=== PATIENT | female | born 1970 | race Caucasian/White ===

== ENCOUNTER → 2017-03-23 | Outpatient (CLI) | payer BC ==
[2015-10-16 14:20] VITALS: BP 121/76
[~2017-03-23] MED LIST: FERR325T58 PO; OLME40TA12 PO
--- NOTE | 2017-03-23 11:23 | KCIC ---
PQRS STATEMENT: One or more of the following in the visualized dose reduction techniques were utilized for this study: 1. Automatic exposure control, 2. Adjustment of the mA and/or kV according to patient size, 3. Use of iterative reconstruction technique CT ABDOMEN/PELVIS Indication:Right flank pain Technique: Multiple contiguous axial images were obtained through the abdomen and pelvis. Coronal and sagittal reformations were created. Findings: There is a 4 mm calculus in the proximal right ureter causing right sided hydronephrosis. There is a nonobstructive 3 mm calculus in the interpolar region of the left kidney. There is no left-sided hydronephrosis. Urinary bladder is within normal limits. The heart size is normal. The lung bases are clear.Evaluation of the abdominal viscera is limited in the absence of IV contrast. The liver and spleen are normal in size. The gallbladder is nondistended. The pancreas, and adrenal glands are within normal limits. There is no abdominopelvic ascites. Abdominal aorta is normal in caliber. .The bowel loops are normal in caliber. The appendix is normal.No destructive osseus lesions are identified. Impression: 4 mm obstructive calculus within the proximal right ureter causing right-sided hydronephrosis. Electronically signed by: Kenji Rosas MD (03/23/2017 11:19 AM)
== END | disposition home or self-care (01) ==
LOC: KCIC CT 10:34
PROVIDERS: ATTEND Nurse Practitioner
DX: N20.2 Calculus of kidney with calculus of ureter (principal)
CPT/HCPCS: 74176

== ENCOUNTER → 2017-03-24 | Outpatient (CLI) | payer BC ==
[2015-10-16 14:20] VITALS: BP 121/76
--- NOTE | 2017-03-24 13:27 | RAD ---
SONOGRAPHY OF THE LEFT BREAST Indications: Follow-up of hypoechoic nodule of the 6 clock position of the left breast seen on sonogram dated August 25, 2016. Probable complicated cyst. Findings: Sonography of the 6:00 position of the left breast demonstrates the same small hypoechoic nodule which now measures 4.8 mm in greatest dimension. Sound through transmission is seen. This nodule measured 7.3 mm in greatest dimension on the previous study. Therefore, it has decreased in size consistent with a complicated cyst. Previously seen benign-appearing left axillary lymph node is not evident today. IMPRESSION: Decrease in size of small complicated cyst of the 6 clock position of the left breast which now only measures 4.8 mm in caliber. Therefore, recommend routine screening mammography. The patient is due for a mammogram on August 26, 2017. BI-RADS Category 2 benign finding. The patient information was entered into the data reminder system with a target due date for the next mammogram of August 26, 2017.. MTDD
== END | disposition home or self-care (01) ==
LOC: MAMMO 12:47
PROVIDERS: ATTEND Obstetrics & Gynecology
DX: N63 Unspecified lump in breast (principal)
CPT/HCPCS: 76641

== ENCOUNTER → 2017-05-12 | Outpatient (CLI) | payer BC ==
[2015-10-16 14:20] VITALS: BP 121/76
--- NOTE | 2017-05-12 13:11 | KCIC ---
Exam: Renal ultrasound Indication: Nephrolithiasis Technique: Multiple realtime grayscale sonographic images were obtained over the abdomen. Static images were submitted for interpretation. Comparisons: None Findings: The Right kidney is normal in size measuring 11.8 x 4.8 x 4.9cm. There is no evidence for mass, nephrolithiasis, or hydronephrosis. The Left kidney is normal in size measuring 12.4 x 6.1 x 5.9cm. There is no evidence for mass, nephrolithiasis, or hydronephrosis. The abdominal aorta is normal in caliber. The IVC is patent. No ascites is identified The urinary bladder is normal Impression: Normal renal ultrasound Electronically signed by: Kenji Rosas MD (05/12/2017 1:08 PM) [place] [id number]
== END | disposition home or self-care (01) ==
LOC: KCIC US 12:15
PROVIDERS: ATTEND Urology
DX: N20.0 Calculus of kidney (principal)
CPT/HCPCS: 76770

== ENCOUNTER → 2017-05-25 | Outpatient (CLI) | payer BC ==
[2015-10-16 14:20] VITALS: BP 121/76
--- NOTE | 2017-05-25 13:26 | KCIC ---
Examination: CT of the abdomen pelvis without contrast HISTORY: History of renal calculus. COMPARISON: 03/23/2017 TECHNIQUE: Axial CT images of the abdomen pelvis were performed without contrast. Coronal and sagittal reformats performed. Exposure: One or more of the following individualized dose reduction techniques were utilized for this examination: 1. Automated exposure control 2. Adjustment of the mA and/or kV according to patient size 3. Use of iterative reconstruction technique FINDINGS: The visualized bibasilar lungs grossly appears unremarkable. No evidence of free air identified in the abdomen. The evaluation of solid organs is limited due to lack of IV contrast. Evaluation of bowel is limited due to lack of oral contrast. The visualized noncontrasted liver, spleen, adrenals grossly appears unremarkable. The gallbladder is mildly distended. The stomach is mildly distended. The visualized pancreas grossly appears unremarkable. The small bowel is nondilated. The appendix is normal. Feces and gas noted in the colon. Multiple colonic diverticula identified. Urinary bladder is mildly distended. Visualized uterus, adnexa grossly appears unremarkable. Punctate intrarenal collecting system calculi identified in the left kidney with largest measuring 4 mm. Another 1 mm intrarenal collecting system calculus identified in the left kidney. No evidence of hydronephrosis. Urinary bladder is mildly distended. Caliber of the aorta grossly appears unremarkable. No evidence of lytic bony destructive lesion. IMPRESSION: 1. Punctate 4 mm and 1 mm intrarenal collecting system calculi identified in the left kidney without hydronephrosis. . 2. Multiple colonic diverticula. Electronically signed by: Rosalio Harris MD (05/25/2017 1:22 PM) [facility]
== END | disposition home or self-care (01) ==
LOC: KCIC CT 12:18
PROVIDERS: ATTEND Urology
DX: N20.0 Calculus of kidney (principal); K57.30 Diverticulosis of large intestine without perforation or abscess without bleeding; Z87.442 Personal history of urinary calculi
CPT/HCPCS: 74176

== ENCOUNTER → 2017-08-27 | Outpatient (CLI) | payer BC ==
[2015-10-16 14:20] VITALS: BP 121/76
--- NOTE | 2017-08-27 15:39 | RAD ---
DATE: 08/27/2017 EXAM: DIGITAL SCREEN BILAT W/CAD HISTORY: Screening mammogram COMPARISON: Previous mammogram from 2016 and 2014 This study was interpreted with the benefit of Computerized Aided Detection (CAD). FINDINGS: Breast Density: HETERO The breast parenchyma Is heterogeneously dense, which could reduce sensitivity of mammography. Breast parenchyma level C. The skin and nipples are within normal limits. Bilateral scattered calcifications noted. No suspicious calcifications, spiculated masses or areas of architectural distortion. IMPRESSION: No mammographic evidence of malignancy. Stable mammogram. BI-RADS CATEGORY: 2 BENIGN FINDING(S) RECOMMENDED FOLLOW-UP: 12M 12 MONTH FOLLOW-UP PQRS compliance statement: Patient information was entered into a reminder system with a target due date 08/27/2018 for the next mammogram. Mammography is a sensitive method for finding small breast cancers, but it does not detect them all and is not a substitute for careful clinical examination. A negative mammogram does not negate a clinically suspicious finding and should not result in delay in biopsying a clinically suspicious abnormality. "Our facility is accredited by the [employer] Mammography Program."
== END | disposition home or self-care (01) ==
LOC: MAMMO 14:58
PROVIDERS: ATTEND Obstetrics & Gynecology
DX: Z12.31 Encounter for screening mammogram for malignant neoplasm of breast (principal)
CPT/HCPCS: G0202; 77067

== ENCOUNTER → 2017-10-28 | Outpatient (CLI) | payer BC | END | disposition home or self-care (01) | LOC: KCIC US 14:55 | DX: N20.0 Calculus of kidney (principal); Z87.442 Personal history of urinary calculi | CPT/HCPCS: 76770 ==

== ENCOUNTER → 2018-03-22 | Outpatient (CLI) | payer BC | END | disposition home or self-care (01) | LOC: KCIC CT 12:44 | DX: N20.0 Calculus of kidney (principal); K44.9 Diaphragmatic hernia without obstruction or gangrene; K57.30 Diverticulosis of large intestine without perforation or abscess without bleeding; I87.8 Other specified disorders of veins | CPT/HCPCS: 74176 ==

== ENCOUNTER → 2018-06-08 | Outpatient (CLI) | payer BC ==
[2015-10-16 14:20] VITALS: BP 121/76
--- NOTE | 2018-06-08 13:56 | RAD ---
DATE: 06/08/2018 EXAM: DIGITAL DIAGNOSTIC LT, BREAST LEFT HISTORY: Left breast pain COMPARISON: 08/27/2017 This study was interpreted with the benefit of Computerized Aided Detection (CAD). Breast Density: HETERO The breast parenchyma is heterogenously dense, which could reduce sensitivity of mammography. Breast parenchyma level C. FINDINGS: No new or enlarging breast densities are seen. There are stable microcalcifications in the left breast. No suspicious microcalcifications have developed. Left breast ultrasound, 06/08/2018: The entire left breast was carefully scanned. Heterogeneous fibroglandular shadows are evident. The small hypoechoic nodule previously seen at the 6:00 location, 2 cm from the nipple is again identified. It is now more elongated in configuration measuring approximately 4.5 x 2.4 mm. There are low level internal echoes. The sequence of scans dating back to 08/25/2016 suggests that this is a collapsing, complicated cyst. No new abnormality is seen in this region or other areas of the left breast. IMPRESSION: 1. Stable left mammograms without evidence of malignancy. 2. Regressing small left breast cyst. BI-RADS CATEGORY: 2 BENIGN FINDING(S) RECOMMENDED FOLLOW-UP: 12M 12 MONTH FOLLOW-UP PQRS compliance statement: Patient information was entered into a reminder system with a target due date for the next mammogram. Mammography is a sensitive method for finding small breast cancers, but it does not detect them all and is not a substitute for careful clinical examination. A negative mammogram does not negate a clinically suspicious finding and should not result in delay in biopsying a clinically suspicious abnormality. "Our facility is accredited by the [employer] Mammography Program."
== END | disposition home or self-care (01) ==
LOC: MAMMO 12:56
PROVIDERS: ATTEND Internal Medicine
DX: N63.23 Unspecified lump in the left breast, lower outer quadrant (principal); Z87.442 Personal history of urinary calculi
CPT/HCPCS: 76641; 77065

== ENCOUNTER 2018-07-14 15:30 | Emergency (ER) | payer BC ==
[~2018-07-14] VITALS: Ht 152.4 cm; Wt 88.5 kg
--- NOTE | 2018-07-14 15:53 | EKG ---
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
[2018-07-14 15:58] LABS: BILIRUBIN,URINE NEGATIVE (NEG); CLARITY,URINE CLEAR; COLOR,URINE YELLOW; NITRITE,URINE NEGATIVE (NEG); PH,URINE 7.5; PROTEIN,URINE NEGATIVE (NEG-TRACE); UROBILINOGEN,URINE 0.2 mg/dL (0.2 mg/dL)
[2018-07-14] MEDS ORDERED: IV NORMAL SALINE 1000ML BAG 1,000 ML IV ONE (16:00)
[2018-07-14 16:03] LABS: BARBITURATES NEG (NEG); BENZODIAZEPINES NEG (NEG); CANNABINOIDS NEG (NEG); COCAINE NEG (NEG); METHADONE NEG (NEG); OPIATES NEG (NEG); PHENCYCLIDINE NEG (NEG)
[2018-07-14 16:05] LABS: AMPHETAMINE/METHAMPHETAMINE NEG (NEG)
--- NOTE | 2018-07-14 16:11 | PHYS DOC ---
Adult General Chief Complaint Chief Complaint: NEURO SYMPTOMS/DEFICITS HPI HPI Patient is a 48 year old F who presents with lightheaded/dizziness since about 9:00 this morning. Patient reports initially both of her hands were tingly. She reports over the course of the day they have become numb. She states her face feels numb as well. She denies any chest pain, shortness of breath, or palpitations. She is also having numbness in a burning sensation to the left inguinal area. She reports she is anxious. Review of Systems Review of Systems Constitutional: Denies fever or chills [] Eyes: Denies change in visual acuity HENT: Denies nasal congestion or sore throat [] Respiratory: Denies cough or shortness of breath [] Cardiovascular: No chest pain or palpitations GI: Denies abdominal pain, nausea, vomiting Musculoskeletal: Denies back pain or joint pain [] Integument: Denies rash or skin lesions [] Neurologic: Denies headache, focal weakness. Reports facial and upper extremity numbness All other systems were reviewed and found to be within normal limits, except as documented in this note. Current Medications Current Medications Current Medications Medications (Trade) Dose Ordered Sig/Amarilis Start Time Stop Time Status Last Admin Dose Admin Ketorolac Tromethamine (Toradol 30mg Vial) 15 mg 1X ONCE 07/14/18 18:30 07/14/18 18:31 DC 07/14/18 18:30 15 MG Potassium Chloride (Klor-Con) 40 meq 1X ONCE 07/14/18 18:30 07/14/18 18:31 DC 07/14/18 18:28 40 MEQ Sodium Chloride 1,000 ml @ 1,000 mls/hr 1X ONCE 07/14/18 16:00 07/14/18 16:59 DC 07/14/18 16:50 1,000 MLS/HR Allergies Allergies Allergies Coded Allergies Type Severity Reaction Last Updated Verified sulfur dioxide Allergy Intermediate Swelling 10/16/15 Yes Physical Exam Physical Exam Constitutional: Well developed, well nourished, no acute distress, non-toxic appearance. [] HENT: Normocephalic, atraumatic Eyes: PERRLA, EOMI, conjunctiva normal, no discharge. [] Neck: Normal range of motion, no tenderness, supple, no stridor. [] Cardiovascular: Tachycardia, regular rhythm, no murmur [] Lungs & Thorax: Bilateral breath sounds clear to auscultation [] Abdomen: Bowel sounds normal, soft, no tenderness Skin: Warm, dry, no erythema, no rash. [] Extremities: ROM intact, no edema. [] Neurologic: Alert and oriented X 3, normal motor function, normal sensory function, no focal deficits noted. [] Psychologic: Affect normal, judgement normal, mood normal. [] Current Patient Data Vital Signs Vital Signs Date Time Temp Pulse Resp B/P (MAP) Pulse Ox O2 Delivery O2 Flow Rate FiO2 07/14/18 18:38 102 21 100 07/14/18 15:40 98.3 202/113 (142) Room Air 98.3 Lab Values Laboratory Tests Test 07/14/18 15:45 07/14/18 15:51 07/14/18 16:10 Urine Collection Type Unknown Urine Color Yellow Urine Clarity Clear Urine pH 7.5 Urine Specific [place] 1.010 Urine Protein Negative mg/dL (NEG-TRACE) Urine Glucose (UA) Negative mg/dL (NEG) Urine Ketones (Stick) Negative mg/dL (NEG) Urine Blood Trace (NEG) Urine Nitrite Negative (NEG) Urine Bilirubin Negative (NEG) Urine Urobilinogen Dipstick 0.2 mg/dL (0.2 mg/dL) Urine Leukocyte Esterase Negative (NEG) Urine RBC 1-2 /HPF (0-2) Urine WBC 0 /HPF (0-4) Urine Squamous Epithelial Cells Mod /LPF Urine Bacteria 0 /HPF (0-FEW) Urine Opiates Screen Neg (NEG) Urine Methadone Screen Neg (NEG) Urine Barbiturates Neg (NEG) Urine Phencyclidine Screen Neg (NEG) Urine Amphetamine/Methamphetamine Neg (NEG) Urine Benzodiazepines Screen Neg (NEG) Urine Cocaine Screen Neg (NEG) Urine Cannabinoids Screen Neg (NEG) Urine Ethyl Alcohol Neg (NEG) POC Urine HCG, Qualitative Hcg negative (Negative) White Blood Count 11.0 x10^3/uL (4.0-11.0) Red Blood Count 5.18 x10^6/uL (3.50-5.40) Hemoglobin 16.4 g/dL (12.0-15.5) H Hematocrit 45.4 % (36.0-47.0) Mean Corpuscular Volume 88 fL (79-100) Mean Corpuscular Hemoglobin 32 pg (25-35) Mean Corpuscular Hemoglobin Concent 36 g/dL (31-37) Red Cell Distribution Width 13.8 % (11.5-14.5) Platelet Count 282 x10^3/uL (140-400) Neutrophils (%) (Auto) 62 % (31-73) Lymphocytes (%) (Auto) 29 % (24-48) Monocytes (%) (Auto) 7 % (0-9) Eosinophils (%) (Auto) 2 % (0-3) Basophils (%) (Auto) 1 % (0-3) Neutrophils # (Auto) 6.8 x10^3uL (1.8-7.7) Lymphocytes # (Auto) 3.1 x10^3/uL (1.0-4.8) Monocytes # (Auto) 0.7 x10^3/uL (0.0-1.1) Eosinophils # (Auto) 0.2 x10^3/uL (0.0-0.7) Basophils # (Auto) 0.1 x10^3/uL (0.0-0.2) D-Dimer (Krys) < 0.27 ug/mlFEU Sodium Level 142 mmol/L (136-145) Potassium Level 3.1 mmol/L (3.5-5.1) L Chloride Level 102 mmol/L (98-107) Carbon Dioxide Level 26 mmol/L (21-32) Anion Gap 14 (6-14) Blood Urea Nitrogen 9 mg/dL (7-20) Creatinine 0.8 mg/dL (0.6-1.0) Estimated GFR (Cockcroft-Gault) 77.2 BUN/Creatinine Ratio 11 (6-20) Glucose Level 122 mg/dL (70-99) H Calcium Level 9.6 mg/dL (8.5-10.1) Total Bilirubin 0.3 mg/dL (0.2-1.0) Aspartate Amino Transferase (AST) 16 U/L (15-37) Alanine Aminotransferase (ALT) 28 U/L (14-59) Alkaline Phosphatase 91 U/L (46-116) Troponin I Quantitative < 0.017 ng/mL (0.000-0.055) Total Protein 8.0 g/dL (6.4-8.2) Albumin 4.1 g/dL (3.4-5.0) Albumin/Globulin Ratio 1.1 (1.0-1.7) Thyroid Stimulating Hormone (TSH) 0.838 uIU/mL (0.358-3.74) Laboratory Tests 07/14/18 16:10 Laboratory Tests 07/14/18 16:10 EKG EKG Sinus tach, rate 120, no STEMI[] Radiology/Procedures Radiology/Procedures PATIENT: ISIDRA BARBA: [id number]#: [id number] : 1970 LOCATION: ER AGE: 48 SEX: F EXAM STATUS: REG ER ORD. PHYSICIAN: TADEO WELSH APRN REASON: left thigh pain PROCEDURE: VENOUS LOWER EXTREMITY LEFT Left Lower Extremity Venous Doppler Ultrasound Indication: Left thigh pain and numbness. Comparison: None. Procedure: Color Doppler, spectral Doppler, and grayscale images with and without compression are obtained in the area of the common femoral vein, superficial femoral vein - femoral vein junction, main femoral vein (superficial femoral vein) and popliteal vein. Veins of the proximal calf are also imaged. Findings: There is normal duplex flow, color flow and compressibility of all visualized vein segments. There is no evidence of deep venous thrombosis. Impression: No evidence of left lower extremity deep venous thrombosis. Electronically signed by: Brett Braun MD (07/14/2018 7:44 PM) [facility] DICTATED and SIGNED BY: BRETT BRAUN MD DATE: 07/14/18 194 PATIENT: ISIDRA BARBA: [id number] : 1970 LOCATION: ER AGE: 48 SEX: F EXAM STATUS: REG ER ORD. PHYSICIAN: TADEO WELSH APRN REASON: tachycardia, lightheadedness PROCEDURE: CHEST AP ONLY Exam: AP portable chest History: Left weakness and lightheadedness. Tachycardia. Comparison: None. Findings: The heart and mediastinal structures are within normal limits for size. Lungs are without infiltrate. No pleural effusion or pneumothorax is identified. Impression: 1. No acute cardiopulmonary process. Electronically signed by: Brett Braun MD (07/14/2018 7:10 PM) [facility] DICTATED and SIGNED BY: BRETT BRAUN MD DATE: 07/14/181908 [] Course & Med Decision Making Course & Med Decision Making Pertinent Labs and Imaging studies reviewed. (See chart for details) Discussed labs and x-ray results with patient. She continues to have numbness in her head and now has a headache. She continues to have burning and numbness to her right inguinal area. I explained to patient multiple times that this is likely a pinched nerve coming from her lower back. She is concerned about a blood clot. Explained that her d-dimer was negative and although it could have been, it is very unlikely that she would have a blood clot with a negative d- dimer. Patient continues to ask for an ultrasound to rule out DVT. I will proceed with this for her reassurance. Plan supportive care, follow up with PCP, return precautions reviewed[] Dragon Disclaimer Dragon Disclaimer This electronic medical record was generated, in whole or in part, using a voice recognition dictation system. Departure Departure Impression: Primary Impression: Numbness and tingling in both hands Additional Impressions: Numbness and tingling sensation of skin Burning pain Disposition: 01 HOME, SELF-CARE Condition: GOOD Referrals: DELPHINE PATEL MD (PCP) Patient Instructions: Lumbosacral Radiculopathy, Paresthesia Additional Instructions: Follow up with your PCP in 1-2 days Problem Qualifiers TADEO WELSH APRN Jul 14, 2018 16:11
[2018-07-14 16:33] LABS: BASO # 0.1 x10^3/uL (0.0-0.2); BASO % 1 % (0-3); EOS # 0.2 x10^3/uL (0.0-0.7); EOS % 2 % (0-3); HEMATOCRIT 45.4 % (36.0-47.0); HEMOGLOBIN 16.4 g/dL (12.0-15.5); LYMPH # 3.1 x10^3/uL (1.0-4.8); LYMPH % 29 % (24-48); MEAN CORPUSCULAR HEMOGLOBIN 32 pg (25-35); MEAN CORPUSCULAR HGB CONC 36 g/dL (31-37); MEAN CORPUSCULAR VOLUME 88 fL (79-100); MONO # 0.7 x10^3/uL (0.0-1.1); MONO % 7 % (0-9); NEUT # 6.8 x10^3uL (1.8-7.7); NEUT % 62 % (31-73); PLATELET COUNT 282 x10^3/uL (140-400); RED BLOOD COUNT 5.18 x10^6/uL (3.50-5.40); RED CELL DISTRIBUTION WIDTH 13.8 % (11.5-14.5)
[2018-07-14 16:40] LABS: CALCIUM 9.6 mg/dL (8.5-10.1); CREATININE 0.8 mg/dL (0.6-1.0); GFR 77.2; POTASSIUM 3.1 mmol/L (3.5-5.1)
[2018-07-14 16:45] LABS: ALBUMIN 4.1 g/dL (3.4-5.0); ALBUMIN/GLOBULIN RATIO 1.1 (1.0-1.7); TOTAL BILIRUBIN 0.3 mg/dL (0.2-1.0)
[2018-07-14 16:49] LABS: BACTERIA,URINE 0 /HPF (0-FEW); SQUAMOUS EPITHELIAL CELL,UR MOD /LPF; WBC,URINE 0 /HPF (0-4)
[2018-07-14] MEDS ORDERED: KETOROLAC 30 MG/ML VIAL. IV ONE (18:30)
[2018-07-14] MEDS ORDERED: POTASSIUM CHLORIDE 20 MEQ TABLET.ER. PO ONE (18:30)
--- NOTE | 2018-07-14 19:13 | RAD ---
Exam: AP portable chest History: Left weakness and lightheadedness. Tachycardia. Comparison: None. Findings: The heart and mediastinal structures are within normal limits for size. Lungs are without infiltrate. No pleural effusion or pneumothorax is identified. Impression: 1. No acute cardiopulmonary process. Electronically signed by: Brett Argueta MD (07/14/2018 7:10 PM) [facility]
--- NOTE | 2018-07-14 19:47 | RAD ---
Left Lower Extremity Venous Doppler Ultrasound Indication: Left thigh pain and numbness. Comparison: None. Procedure: Color Doppler, spectral Doppler, and grayscale images with and without compression are obtained in the area of the common femoral vein, superficial femoral vein - femoral vein junction, main femoral vein (superficial femoral vein) and popliteal vein. Veins of the proximal calf are also imaged. Findings: There is normal duplex flow, color flow and compressibility of all visualized vein segments. There is no evidence of deep venous thrombosis. Impression: No evidence of left lower extremity deep venous thrombosis. Electronically signed by: Brett Argueta MD (07/14/2018 7:44 PM) [facility]
[2018-07-14 20:23] VITALS: BP 146/89
== END 2018-07-14 20:32 | disposition home or self-care (01) ==
LOC: ER 15:30
DX: R20.2 Paresthesia of skin (principal); R20.0 Anesthesia of skin; R10.32 Left lower quadrant pain; R42 Dizziness and giddiness; R51 Headache; R00.0 Tachycardia, unspecified; M79.652 Pain in left thigh; Z88.2 Allergy status to sulfonamides
CPT/HCPCS: 36415; 71045; 80053; 80307; 81001; 81025; 84443; 84484; 85025; 85379; 93005; 93971; 96361; 96374; 99285; J1885; J7030; G0479

== ENCOUNTER → 2018-08-26 | Outpatient (CLI) | payer BC ==
[~2018-08-26] MED LIST changes: +AMLO5TAB7 PO; +AMOX1TAB11 PO; +HYDR12.58 PO; +METF500T16 PO; +POTA20TA82 PO
[2018-08-26 16:01] LABS: BASO # 0.1 x10^3/uL (0.0-0.2); BASO % 1 % (0-3); EOS # 0.2 x10^3/uL (0.0-0.7); EOS % 2 % (0-3); HEMATOCRIT 44.8 % (36.0-47.0); HEMOGLOBIN 15.3 g/dL (12.0-15.5); LYMPH # 3.2 x10^3/uL (1.0-4.8); LYMPH % 28 % (24-48); MEAN CORPUSCULAR HEMOGLOBIN 30 pg (25-35); MEAN CORPUSCULAR HGB CONC 34 g/dL (31-37); MEAN CORPUSCULAR VOLUME 89 fL (79-100); MONO # 0.8 x10^3/uL (0.0-1.1); MONO % 7 % (0-9); NEUT # 7.1 x10^3uL (1.8-7.7); NEUT % 62 % (31-73); PLATELET COUNT 267 x10^3/uL (140-400); RED BLOOD COUNT 5.06 x10^6/uL (3.50-5.40); RED CELL DISTRIBUTION WIDTH 13.8 % (11.5-14.5); WHITE BLOOD COUNT 11.4 x10^3/uL (4.0-11.0)
--- NOTE | 2018-08-26 16:07 | EKG ---
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
[2018-08-26 16:10] LABS: BILIRUBIN,URINE NEGATIVE (NEG); CLARITY,URINE CLEAR; COLOR,URINE YELLOW; NITRITE,URINE NEGATIVE (NEG); PH,URINE 7.5; PROTEIN,URINE NEGATIVE (NEG-TRACE); UROBILINOGEN,URINE 0.2 mg/dL (0.2 mg/dL)
[2018-08-26 16:16] LABS: ALBUMIN 3.7 g/dL (3.4-5.0); ALBUMIN/GLOBULIN RATIO 0.9 (1.0-1.7); CALCIUM 9.4 mg/dL (8.5-10.1); CREATININE 0.7 mg/dL (0.6-1.0); GFR 90.1; TOTAL BILIRUBIN 0.3 mg/dL (0.2-1.0); TOTAL PROTEIN 7.9 g/dL (6.4-8.2)
[2018-08-26 16:19] LABS: RBC,URINE TNTC /HPF (0-2)
[2018-08-26 16:20] LABS: BACTERIA,URINE 0 /HPF (0-FEW); SQUAMOUS EPITHELIAL CELL,UR MOD /LPF
[2018-08-27 02:13] LABS: HEMOGLOBIN A1C 6.2 % (4.8-5.6)
== END | disposition home or self-care (01) ==
LOC: SURGPAT 14:39
PROVIDERS: ATTEND Obstetrics & Gynecology
DX: Z01.818 Encounter for other preprocedural examination (principal); I10 Essential (primary) hypertension; R73.03 Prediabetes
CPT/HCPCS: 36415; 80053; 81001; 83036; 85025; 87086; 93005

== ENCOUNTER 2018-09-01 08:51 | Observation (INO) | payer BC ==
[~2018-09-01] VITALS: Ht 152.4 cm; Wt 85.3 kg
[~2018-09-01 08:51] MED LIST changes: -AMOX1TAB11 PO; +HYDROmorphone 2 MG/ML VIAL IV PRN; +IV RINGERS,LACTATED 1000ML 1,000 ML IV SCH; +LIDOCAINE 1% PF 2 ML VIAL. ID PRN; +MORPHINE SULFATE 2 MG/ML VIAL. IV PRN; +ONDANSETRON PF 4 MG/2 ML VIAL. IV PRN; +PROCHLORPERAZINE 10 MG/2 ML VIAL. IV PRN; +fentaNYL PF VIAL 100 MCG/2 ML VIAL IV PRN
[2018-09-01] MEDS ORDERED: AMOX1TAB11 PO (09:24)
[2018-09-01] MEDS ORDERED: ROCURONIUM 50 MG/5 ML VIAL. ONE ×2 (09:33→11:32)
[2018-09-01] MEDS ORDERED: fentaNYL PF VIAL 250 MCG/5 ML VIAL ONE (09:33)
[2018-09-01] MEDS ORDERED: MIDAZOLAM HCL/PF 2 MG/2 ML VIAL. ONE (09:33)
[2018-09-01] MEDS ORDERED: ISOSULFAN BLUE 50 MG/5 ML VIAL. SQ ONE (09:35)
[2018-09-01] MEDS ORDERED: BUPIVAC MPF-EPI 0.5%-1:200000 30 ML VIAL. ONE (09:35)
[2018-09-01] MEDS ORDERED: ESTROGENS, CONJ VAGINAL CREAM 30GM TUBE. ONE (09:35)
[2018-09-01] MEDS ORDERED: METHYLENE BLUE 1% 10 ML VIAL. ONE (09:45)
[2018-09-01 10:16] LABS: U PREG PATIENT NEGATIVE (NEG)
[2018-09-01] MEDS ORDERED: PROPOFOL 20 ML IV ONE (10:30)
[2018-09-01] MEDS ORDERED: ONDANSETRON PF 4 MG/2 ML VIAL. ONE (10:30)
[2018-09-01] MEDS ORDERED: DEXAMETHASONE SOD PHOS 20 MG/5 ML VIAL. ONE (10:30)
[2018-09-01] MEDS ORDERED: LIDOCAINE 2% PF Vial for OR 5 ML VIAL. ONE (10:30)
[2018-09-01] MEDS ORDERED: SEVOFLURANE 61 TO 120 MINUTES. IH ONE (10:30)
[2018-09-01] MEDS ORDERED: SEVOFLURANE > 120 MINUTES. IH ONE (10:30)
[2018-09-01] MEDS ORDERED: PHENYLEPHRINE in 0.9% NACL PF 1 MG/10 ML SYRINGE. IV ONE (10:56)
[2018-09-01] MEDS ORDERED: amLODIPine BESYLATE 5 MG TABLET PO SCH (11:00)
[2018-09-01] MEDS ORDERED: hydroCHLOROthiazide 25 MG TABLET PO SCH (11:00)
[2018-09-01] MEDS ORDERED: POTASSIUM CHLORIDE 20 MEQ TABLET.ER. PO SCH (11:00)
[2018-09-01] MEDS ORDERED: GLYCOPYRROLATE 1 MG/5 ML VIAL. ONE (12:32)
[2018-09-01] MEDS ORDERED: NEOSTIGMINE METHYLSULFATE 5 MG/5 ML SYRINGE. ONE (12:32)
[2018-09-01] MEDS ORDERED: fentaNYL PF VIAL 100 MCG/2 ML VIAL ONE (12:41)
[2018-09-01] MEDS ORDERED: PROCHLORPERAZINE 10 MG/2 ML VIAL. ONE (12:41)
[2018-09-01] MEDS ORDERED: ZOLPIDEM 5 MG TABLET. PO PRN (12:45)
[2018-09-01] MEDS ORDERED: diphenhydrAMINE HCL 25 MG CAPSULE PO PRN (12:45)
[2018-09-01] MEDS ORDERED: 0.9 % SODIUM CHLORIDE 10 ML DISP.SYRIN. IV PRN (12:45)
[2018-09-01] MEDS ORDERED: MORPHINE SULFATE 2 MG/ML VIAL. IV PRN (12:45)
[2018-09-01] MEDS ORDERED: LACTULOSE 20 GM/30 ML SOLUTION. PO PRN (12:45)
[2018-09-01] MEDS ORDERED: HYDROcodone/APAP 5/325MG 1 TAB TABLET PO PRN (12:45)
[2018-09-01] MEDS ORDERED: ONDANSETRON PF 4 MG/2 ML VIAL. IV PRN (12:45)
[2018-09-01] MEDS ORDERED: CALCIUM CARBONATE 500 MG TAB.CHEW PO PRN (12:45)
[2018-09-01] MEDS ORDERED: NALOXONE 0.4 MG/ML VIAL. IV PRN (12:45)
[2018-09-01] MEDS ORDERED: MAG HYDROX/ALUMINUM HYD/SIMETH 30 ML ORAL.SUSP PO PRN (12:45)
[2018-09-01] MEDS ORDERED: MAGNESIUM HYDROXIDE 2,400 MG/30 ML ORAL.SUSP. PO PRN (12:45)
[2018-09-01] MEDS ORDERED: diphenhydrAMINE 50 MG/ML VIAL IV PRN (12:45)
[2018-09-01] MEDS ORDERED: SIMETHICONE 80 MG TAB.CHEW PO PRN (12:45)
--- NOTE | 2018-09-01 12:55 | PDOC ---
BRIEF OPERATIVE NOTE Date: Sep 01, 2018 Pre-Op Diagnosis DUB, menorrhagia to anemia, fibroid uterus Post-Op Diagnosis same plus umbilical adhesions Procedure Performed LAVH/RSO/left salpingectomy/Adhesiolysis Surgeon Dr. Hanna Hickman Paint Sprayer Sandblaster GAIL P[place]on Anesthesiologist Dr. Rayo Anesthesia Type: General Blood Loss 250cc IV Fluid 1600cc Urine Output 250cc clear via muhammad Specimens Obtained cervix, uterus, right tube and ovary, left tube Findings thick omental adhesions umbilicus, enlarged fibroid uterus, small functional cyst right ovary, normal bilateral tubes Complications none Operative Note [id number] HANNA HICKMAN MD Sep 01, 2018 12:55
[2018-09-01] MEDS: fentaNYL PF VIAL 100 MCG/2 ML VIAL IV PRN ×2 (13:15→13:32)
--- NOTE | 2018-09-01 13:31 | OP ---
DATE OF SURGERY: 09/01/2018 PREOPERATIVE DIAGNOSES: Enlarged fibroid uterus, dysfunctional uterine bleeding, menorrhagia to anemia. POSTOPERATIVE DIAGNOSES: Enlarged fibroid uterus, dysfunctional uterine bleeding, menorrhagia to anemia, plus umbilical adhesions. PROCEDURE: Laparoscopic assisted vaginal hysterectomy, right salpingo-oophorectomy, left salpingectomy and adhesiolysis. SURGEON: Antwan Hickman MD. MARBLE WORKER: Bailee Cottrell RN, rn first assist. ANESTHESIOLOGIST: Dr. Rayo. ANESTHESIA: General endotracheal. ESTIMATED BLOOD LOSS: 250 mL. URINE OUTPUT: 250 mL, clear via Hurd catheter. IV FLUIDS: 1600 mL of crystalloid. SPECIMEN REMOVED: Cervix, uterus, right tube and ovary, left tube. FINDINGS: Thick omental adhesions around the umbilicus, enlarged fibroid uterus, small functional cyst on the right ovary. Normal bilateral tubes. COMPLICATIONS: None. DESCRIPTION OF PROCEDURE: This patient was taken to the operating room where general anesthesia was placed. The patient was placed in dorsal lithotomy position in Rodríguez stirrups. The patient's abdomen and vagina were prepped and draped in the normal sterile fashion, and a Hurd catheter had been inserted under sterile technique. Upon my arrival, a timeout was performed. Once everyone was in agreement, a bivalve speculum was placed in the patient's vagina. A single-tooth tenaculum was used to grasp the anterior lip of the cervix. A 10 mL of 0.5% Marcaine with epinephrine was used to circumferentially inject around the cervix for both hemodissection and hemostatic purposes later. The Valtchev uterine manipulator was placed through the endocervical os, locked on the single tooth tenaculum and the bivalve speculum was then removed. Top gloves were discarded and changed. Attention was then turned to the abdomen where a small infraumbilical skin incision was initially made with the scalpel over an existing scar from her tubal. However, upon dissecting through and trying to look with the Visiport, she had very, very, very thick fascia, would not go through initially, so due to her having a previous scar there and being so thick indicative of scarring, I did not go through with the trocar, and I did a left upper quadrant entry. I made a small incision in the mid clavicular area approximately 1-2 cm below the rib line and went right and clear of any adhesions and used the gas to insufflate to maintain a pressure of 15-16 mmHg., placed in Trendelenburg. I then looked down and revealed thick omental adhesions under that. They appeared to be all omentum, no bowel; however, we did not go through there, we just made the superficial skin and went through the subcuticular layer, but never broke fascia, so I did put in right and left lower quadrant ports under direct visualization after transilluminating the abdomen making a small incision clear of any vasculature and placing the 5 mm atraumatic trocar through under direct visualization and insufflating the cuff with 2 mL of air. I then did go back and looked above at the left upper quadrant port, and it was clear of any adhesions and looked good, and I insufflated that cuff. I then did the LigaSure and took down the omental adhesions around the umbilicus. At this point, both tubes and ovaries were examined, the patient wanted one out and one in, so I ended up taking the right tube and ovary out as I could see the ureter coursing very low in the pelvis nowhere near the IP ligament, and she had a small functional cyst on this ovary anyway, so elevating the right tube and ovary, staying high on the IP ligament, well above the level of the ureter, cauterizing and cutting it, going over, getting the rounds and uterines and starting the bladder flap on the right side. The left side elevating the tube and ovary, staying below the tube above the ovary. Part of the tube did come off, and it was pulled out. She had a tubal ligation, and the fimbriated end came off, and then, we went through and took the rest of the tube crossing the left uterine ovarian pedicle, leaving the left ovary per the patient's request, going down and getting the round on this side, the uterines on this side and making sure the bladder was down, Once the bladder was down, going through the cardinal and broad ligaments down to the level of the uterosacrals bilaterally, obtaining all the vasculature, the uterus was blanched and completely free at this point. All instruments were removed from the abdomen and attention was now turned vaginally. The single tooth and Valtchev were removed. A short weighted speculum was placed in the patient's vagina. Thyroid Sugar clamps were placed on the anterior and posterior lips of the cervix respectively. A scalpel was used to make a circumferential incision in the cervix. An open Ray-Blu 4 x 4 was used to gently push up the anterior bladder peritoneum, and the anterior cul-de-sac was digitally and bluntly entered. The 4 x 4 was taken out, and a curved Mary was placed in the anterior cul-de-sac. The cervix is elevated. The posterior cul-de-sac was sharply entered with the Coronel scissors. A #0 Vicryl stitch was used to secure the posterior peritoneum here to the vaginal cuff, and it was tagged with a curved Beverly clamp and the needle was cut and passed off. The short weighted speculum was removed and replaced with the long weighted Griselda speculum in the posterior cul-de-sac. Curved Suresh clamps x 2 were placed on the patient's left uterosacral ligament where they were doubly clamped with curved Heaneys, cut with Coronel scissors and suture ligated x 2 with 0 Vicryl. Second one was taken through the vaginal cuff securing uterosacral ligament to the vaginal cuff, tagging it with a straight Beverly clamp and passing the needle off. This was done exactly the same on the right side, double clamping the right uterosacral with curved Suresh's, cutting with Coronel scissors, suture ligating x 2 with 0 Vicryl, taking the second one through the vaginal cuff and tagging it with a straight Beverly clamp, cutting and passing the needle off. The remaining pedicles on both sides were delineated with the right angle clamp, and the vaginal LigaSure was used to cauterize and cut the remaining pedicles. The cervix, uterus, left tube, right tube and ovary were delivered in total and passed off for permanent pathology. A sponge stick and a long Allis were used to grasp the anterior bladder peritoneum. Once this was done, the pedicles were examined with a sponge stick. They appeared to be hemostatic. The long Griselda speculum was removed and replaced with the short weighted vaginal speculum. There was some bleeding from the posterior vaginal cuff, but that was it. So, 2-0 Vicryl was taken through the anterior bladder peritoneum, left uterosacral ligament, posterior peritoneum and right uterosacral ligament, closing the peritoneum in a pursestring like fashion. Once this was done, the right and left uterosacral tags were clipped as well. A full length 2-0 Vicryl was used to close the vaginal cuff in an anterior to posterior running locked fashion and it was tied to that posterior cuff tag. It was clipped. A few interrupted sutures were placed for hemostasis, and the cuff looked good. At this point, vaginal packing with Premarin cream was placed in the vagina. All gloves were discarded and changed. Attention was turned back above for a second look, there were a few clots in the posterior cul-de-sac. These were cleared out. The right and left pericolic gutters were clear. Copious irrigation revealed slight oozing on the left side at the cuff. This was grasped with the LigaSure and cauterized with excellent return. Tisseel was placed over the pedicle; however, the Tisseel did not spray right, a kind of came out weird, so I just went ahead and used Aram. It was not actively bleeding. I was just putting it over the viable cuff. The powder of the Aram stayed white and powdery, nothing was actively bleeding. I did release some air to watch it, the right and left lower quadrant ports. The 2 mL of air were released from the trocar cuff. These were removed under direct visualization. They were hemostatic. Gas was released from that left upper quadrant port and removed all three port sites before. There was skin incision made at the umbilical, were closed with 4-0 nylon and will be injected with local at the end, and the patient is currently being awakened from anesthesia. ANTWAN HICKMAN MD DR: LOLIS/larry JOB#: [id number] / [id number]
[2018-09-01 14:19] VITALS: BP 146/88
[2018-09-01 14:35] VITALS: BP 142/94
[2018-09-01 15:19] VITALS: BP 140/88
[2018-09-01] MEDS: oxyCODONE/APAP 5/325 1 TAB TABLET PO PRN (18:58)
[2018-09-01 22:59] VITALS: BP 132/93
[2018-09-02] MEDS: oxyCODONE/APAP 5/325 1 TAB TABLET PO PRN ×2 (00:21→06:01)
[2018-09-02 06:12] VITALS: BP 107/71
[2018-09-02 07:34] LABS: CALCIUM 8.6 mg/dL (8.5-10.1); CREATININE 0.7 mg/dL (0.6-1.0); GFR 90.1; POTASSIUM 3.2 mmol/L (3.5-5.1)
--- NOTE | 2018-09-02 09:17 | PDOC ---
SURGICAL PROGRESS NOTE Subjective Doing well without complaints. Tolerating regular diet, ambulating well, voiding without catheter and wants to go home Vital Signs Vital Signs Date Time Temp Pulse Resp B/P (MAP) Pulse Ox O2 Delivery O2 Flow Rate FiO2 09/02/18 06:12 98.4 107 16 107/71 (83) 98.4 09/01/18 22:59 96 Room Air 09/01/18 13:15 10.0 I&O Intake and Output 09/02/18 07:00 Intake Total 1660 ml Output Total 600 ml Balance 1060 ml Intake Oral 210 ml IV Total 1450 ml Output Urine Total 350 ml Estimated Blood Loss 250 ml PATIENT HAS A GUSMAN: No General: Alert, Oriented X3, Cooperative, No acute distress HEENT: Atraumatic Heart: Regular rate Abdomen: Normal bowel sounds, Soft, No tenderness, No masses Extremities: No clubbing, No cyanosis, No edema, No tenderness/swelling Skin: No rashes, No breakdown Neuro: Normal speech Psych/Mental Status: Mental status NL, Mood NL Labs Laboratory Tests Test 09/01/18 09:10 09/01/18 09:26 09/01/18 10:05 09/01/18 13:00 Urine Test Negative (NEG) Glucose (Fingerstick) 111 mg/dL (70-99) 148 mg/dL (70-99) Potassium Level 3.7 mmol/L (3.5-5.1) Test 09/02/18 05:40 Hematocrit 39.0 % (36.0-47.0) Sodium Level 139 mmol/L (136-145) Potassium Level 3.2 mmol/L (3.5-5.1) Chloride Level 103 mmol/L (98-107) Carbon Dioxide Level 24 mmol/L (21-32) Anion Gap 12 (6-14) Blood Urea Nitrogen 8 mg/dL (7-20) Creatinine 0.7 mg/dL (0.6-1.0) Estimated GFR (Cockcroft-Gault) 90.1 Glucose Level 112 mg/dL (70-99) Calcium Level 8.6 mg/dL (8.5-10.1) Laboratory Tests Test 09/01/18 09:10 09/01/18 09:26 09/01/18 10:05 09/01/18 13:00 Urine Test Negative (NEG) Glucose (Fingerstick) 111 mg/dL (70-99) 148 mg/dL (70-99) Potassium Level 3.7 mmol/L (3.5-5.1) Test 09/02/18 05:40 Hematocrit 39.0 % (36.0-47.0) Sodium Level 139 mmol/L (136-145) Potassium Level 3.2 mmol/L (3.5-5.1) Chloride Level 103 mmol/L (98-107) Carbon Dioxide Level 24 mmol/L (21-32) Anion Gap 12 (6-14) Blood Urea Nitrogen 8 mg/dL (7-20) Creatinine 0.7 mg/dL (0.6-1.0) Estimated GFR (Cockcroft-Gault) 90.1 Glucose Level 112 mg/dL (70-99) Calcium Level 8.6 mg/dL (8.5-10.1) I have reviewed the following labs, vitals, nursing Cardiovascular: HTN Pulmonary: No pertinent hx GI: No pertinent hx Heme/Onc: Anemia NOS Psych: No pertinent hx Rheumatologic: No pertinent hx Infectious disease: No pertinent hx ENT: No pertinent hx Renal/: No pertinent hx Problem List enlarged fibroid uterus, menorrhagia/DUB to anemia Assessment/Plan POD#1 s/p LAVH/RSO/left salpingectomy with adhesiolysis Routine PO Care d/c to home NPV x 6 weeks light/limited activity x 2 weeks [place]--written ok for OTC ibuprofen as needed as well NO driving while on narcotic pain meds keep scheduled follow up in one week call or return sooner if has any other questions or concerns not limited to but including pain unrelieved with pain meds, increased or unexplained vag bleeding or T>100.4 ANTWAN NATARAJAN MD Sep 02, 2018 09:16
--- NOTE | 2018-09-02 09:23 | PDOC3 ---
Discharge Summary Visit Information Date of Admission: Sep 01, 2018 Date of Discharge: Sep 02, 2018 Final Diagnosis fibroids, DUB Brief Hospital Course Allergies Allergies Coded Allergies Type Severity Reaction Last Updated Verified Sulfa (Sulfonamide Antibiotics) Allergy Intermediate SWELLING, HIVES 09/01/18 Yes Vital Signs Vital Signs Date Time Temp Pulse Resp B/P (MAP) Pulse Ox O2 Delivery O2 Flow Rate FiO2 09/02/18 06:12 98.4 107 16 107/71 (83) 98.4 09/01/18 22:59 96 Room Air 09/01/18 13:15 10.0 Lab Results Laboratory Tests Test 09/01/18 09:10 09/01/18 09:26 09/01/18 10:05 09/01/18 13:00 Urine Test Negative (NEG) Glucose (Fingerstick) 111 mg/dL (70-99) 148 mg/dL (70-99) Potassium Level 3.7 mmol/L (3.5-5.1) Test 09/02/18 05:40 Hematocrit 39.0 % (36.0-47.0) Sodium Level 139 mmol/L (136-145) Potassium Level 3.2 mmol/L (3.5-5.1) Chloride Level 103 mmol/L (98-107) Carbon Dioxide Level 24 mmol/L (21-32) Anion Gap 12 (6-14) Blood Urea Nitrogen 8 mg/dL (7-20) Creatinine 0.7 mg/dL (0.6-1.0) Estimated GFR (Cockcroft-Gault) 90.1 Glucose Level 112 mg/dL (70-99) Calcium Level 8.6 mg/dL (8.5-10.1) Laboratory Tests Test 09/01/18 09:26 09/01/18 10:05 09/01/18 13:00 09/02/18 05:40 Glucose (Fingerstick) 111 mg/dL (70-99) 148 mg/dL (70-99) Potassium Level 3.7 mmol/L (3.5-5.1) 3.2 mmol/L (3.5-5.1) Hematocrit 39.0 % (36.0-47.0) Sodium Level 139 mmol/L (136-145) Chloride Level 103 mmol/L (98-107) Carbon Dioxide Level 24 mmol/L (21-32) Anion Gap 12 (6-14) Blood Urea Nitrogen 8 mg/dL (7-20) Creatinine 0.7 mg/dL (0.6-1.0) Estimated GFR (Cockcroft-Gault) 90.1 Glucose Level 112 mg/dL (70-99) Calcium Level 8.6 mg/dL (8.5-10.1) Brief Hospital Course Ms. Orellana is a 48 old female who presented with DUB. She had menorrhagia to anemia for the past 1-2 yrs even requiring blood transfusion in past on meds. She underwent LAVH/RSO/left salpingectomy with adhesiolysis yesterday without complication. She has had an unremarkable postoperative course and is voiding without catheter, tolerating regular diet, ambulating well, scant vag bleeding and pain controlled wanting to go home. Discharge Information Condition at Discharge: Improved Follow Up: Weeks Disposition/Orders: D/C to Home Scheduled Amlodipine Besylate (Amlodipine Besylate) 5 Mg Tablet, 5 MG PO DAILY for HEART, (Reported) Entered as Reported by: KEITH GONZALEZ on 08/26/181511 Last Taken: Unknown Dose on 09/01/18629 Last Action: Continued on 929 by ANTWAN NATARAJAN Amoxicillin/Potassium Clav (Amox Tr-K Clv 875-125 Mg Tab) 1 Each Tablet, 1 TAB PO BID for infection, #20 (Reported) Entered as Reported by: RAMSES FONTENOT on 09/01/18923 Last Taken: Unknown Dose on 08/31/18 Last Action: HELD on 09/01/18929 by ANTWAN NATARAJAN Hydrochlorothiazide (Hydrochlorothiazide Tablet) 12.5 Mg Tablet, 25 MG PO DAILY for DIURETIC, Ref 0 (Reported) Entered as Reported by: KEITH GONZALEZ on 08/26/181511 Last Taken: Unknown Dose on 08/31/18 Last Action: Converted on 09/01/18929 by ANTWAN NATARAJAN Metformin Hcl (Metformin Hcl) 500 Mg Tablet, 500 MG PO DAILYWBKFT for ANTI- DIABETIC, Ref 0 (Reported) Entered as Reported by: KEITH GONZALEZ on 08/26/181511 Last Taken: Unknown Dose on 08/31/18 Last Action: HELD on 09/01/18929 by ANTWAN NATARAJAN Potassium Chloride (Potassium Chloride) 20 Meq Tablet.er, 20 MEQ PO DAILY for DAILY, (Reported) Entered as Reported by: KEITH GONZALEZ on 08/26/18 1512 Last Taken: Unknown Dose on 08/31/18 Last Action: Converted on 09/01/18929 by ANTWAN NATARAJAN Discontinued Medications Ferrous Sulfate (Iron Supplement) 325 Mg Tablet, 1 TAB PO BID, #60 Ref 3 ( Reported) Entered as Reported by: FARRAH BRUCE on 10/16/15 0749 Olmesartan Medoxomil (Benicar) 40 Mg Tablet, 1 TAB PO DAILY, #30 Ref 5 (Reported ) Entered as Reported by: FARRAH BRUCE on 10/16/15 0749 Patient Instructions Patient Instructions POD#1 s/p LAVH/RSO/left salpingectomy with adhesiolysis Routine PO Care d/c to home NPV x 6 weeks light/limited activity x 2 weeks [place]--written ok for OTC ibuprofen as needed as well NO driving while on narcotic pain meds keep scheduled follow up in one week call or return sooner if has any other questions or concerns not limited to but including pain unrelieved with pain meds, increased or unexplained vag bleeding or T>100.4 ANTWAN NATARAJAN MD Sep 02, 2018 09:23
--- NOTE | 2018-09-06 18:08 | PATHOLOGY ---
[facility] Accession Number: [id number] . 01 Material submitted: . UTERUS, CERVIX, BILATERAL TUBES, RIGHT OVARY, AND A PIECE OF THE LEFT TUBE . 01 Clinical history: . Excessive menstrual bleeding . 02 Diagnosis: Uterus and attached right fallopian tube and ovary and left tubal stump and separate segment of fallopian tube, laparoscopic-assisted vaginal hysterectomy with bilateral salpingectomy and right oophorectomy: - Leiomyomas, uterine corpus, subserosal and intramural, multiple, largest measuring 1.2 cm in greatest dimension (uterine weight 211 grams). - Adenomyosis, uterine corpus, sub-basal, focal. - Mild chronic cervicitis, focal. - Inactive/weakly proliferative endometrium. - Congestion of bilateral fallopian tubes. - Paratubal cysts, bilateral. - Multiple cystic follicles and few small simple serous cysts of right ovary. (JPM:israel; 09/06/2018) MBR/09/06/2018 . 02 Comment: There is no atypia or evidence of malignancy. (JPM:israel; 09/06/2018) . 02 Electronically signed: . Romulo Zuñiga MD, Pathologist NPI- [id number] . 01 Gross description: . Received in formalin labeled "OrellanaRickySerene, uterus, cervix, bilateral tube, right ovary, piece of L tube," is a uterus with attached cervix, 11 g right adnexa and 2 g left fallopian tube stump. Also received separate within the specimen container is a 1 g fimbriated fallopian tube segment (inked black). The uterus with attached cervix weighs 211 g and measures 11.8 cm fundus-cervix, 8.3 cm cornu-cornu, and 5.5 cm anterior-posterior. Multiple subserosal nodules are present, ranging from 0.2 to 1.2 cm in maximum dimension. The anterior uterine serosa is extensively disrupted in appearance, with disruptions measuring up to 0.2 cm deep. The 1.4 x 0.4 cm, cervical os is surrounded by wrinkled, pale jade to dunn-jade ectocervical mucosa. The specimen is bisected to reveal a pale jade, corrugated endocervical canal measuring 4.2 cm in length. The triangular endometrial cavity measures 3.5 cm in width by 5.4 cm in length. The endometrium is smooth to shaggy and pale jade to hemorrhagic in appearance, measuring up to 0.2 cm in thickness. Serial sectioning reveals a pale jade to pink-jade, slightly trabeculated myometrium measuring up to 2.5 cm in thickness. An area of heavily trabeculated, partially cystic myometrium is noted in the anterior cut surfaces. A pale jade nodule is noted in the posterior lower uterine segment myometrium, measuring 1.2 cm in maximum dimension. No further lesions or nodules are noted. . The 11 g right adnexa consists of a fimbriated fallopian tube segment measuring 6.7 cm in length by up to 0.7 cm in diameter and ovary measuring 2.8 x 2.2 x 2.0 cm in greatest dimensions. The fallopian tube serosal surface is dusky dunn-jade in appearance, displaying multiple paratubal cysts measuring up to 0.2 cm in maximum dimension. Serial sectioning reveals a pinpoint lumen, as well as a cystic cavity filled with translucent, light jade material measuring 0.6 cm in maximum dimension. The ovarian surface is lobulated and pale yellow-jade to dunn-jade in appearance. Serial sectioning reveals multiple unilocular cystic structures filled with clear, colorless fluid ranging from 0.2 to 1.4 cm in maximum dimension. The cyst wall linings are smooth in appearance, with no gross evidence of papillary excrescences. The remaining cut sections reveal pale jade ovarian stroma. . The 2 gram left non-fimbriated fallopian tube stump measures 2.6 cm in length by 0.7 cm in diameter. The serosal surface is dusky mistry-jade appearance, displaying a single paratubal cyst measuring 0.6 cm in maximum dimension. Serial sectioning reveals a pinpoint lumen, as well as a white plastic donut-shaped segment measuring 0.3 cm in length by 0.4 cm in diameter. . The separate 1 g fimbriated fallopian tube segment measures 1.1 cm in length by 0.5 cm in diameter. The serosal surface is dusky dunn-jade in appearance, with no lesions or nodules noted grossly. Sectioning reveals a pinpoint lumen. The specimen is submitted representatively as follows: . A1: 12:00 cervix A2: 6:00 cervix A3: Anterior endomyometrium A4: Posterior endomyometrium A5: Uterine serosal nodules A6: Anterior uterine serosal defects A7: Intramural nodule and heavily trabeculated/cystic myometrium A8: Right fallopian tube A9: Right ovary A10: Left fallopian tube stump and separate fimbriated fallopian tube segment (DAC; 09/03/2018) XDC/XDC . 02 Pathologist provided ICD-10: D25.2, D25.1, N80.0, N72, N83.8, N83.291 . 02 CPT . 435958 Specimen Comment: A courtesy copy of this report has been sent to Specimen Comment: [phone], . Specimen Comment: Report sent to / DR PATEL Specimen Comment: A duplicate report has been generated due to demographic updates. Performed at: [address] [facility], [place] [id number] MD Phuc Goldberg MD Phone: [phone] [facility]formed at: [facility] [address] [place], [place] [id number] MD Romulo Zuñiga MD Phone: [phone]
== END 2018-09-02 09:30 | disposition home or self-care (01) ==
LOC: OPSVCIP 08:51 → UNDOADMIN 08:51 → OPSVCOP 08:51 → EDSTATUS 10:15 → OPSVCIP 14:07 → 3 NORTH 14:07 → UNDODISIN 09-02 09:33
PROVIDERS: ADMIT Obstetrics & Gynecology; ATTEND Obstetrics & Gynecology
DX: D25.1 Intramural leiomyoma of uterus (principal); D25.2 Subserosal leiomyoma of uterus; N72 Inflammatory disease of cervix uteri; N83.8 Other noninflammatory disorders of ovary, fallopian tube and broad ligament; N83.201 Unspecified ovarian cyst, right side; N92.0 Excessive and frequent menstruation with regular cycle; D64.9 Anemia, unspecified; N93.8 Other specified abnormal uterine and vaginal bleeding; K56.50 Intestinal adhesions [bands], unspecified as to partial versus complete obstruction
CPT/HCPCS: 36415; 58552; 80048; 81025; 82962; 84132; 85014; 86850; 86900; 86901; A7015; G0378; G0379; J0690; J0780; J1100; J2001; J2250; J2370; J2704; J2710; J3010; J3490; J7030; J7120; 88307; J2405; Q9968

== ENCOUNTER → 2018-11-25 | Outpatient (CLI) | payer BC ==
[~2018-11-25] MED LIST changes: +AMLO5TAB10 PO; -AMLO5TAB7 PO; +AMOX1TAB11 PO; -HYDROmorphone 2 MG/ML VIAL IV PRN; +IOHEXOL 300 MG/ML 100ML VIAL. IV ONE; -IV RINGERS,LACTATED 1000ML 1,000 ML IV SCH; -LIDOCAINE 1% PF 2 ML VIAL. ID PRN; -MORPHINE SULFATE 2 MG/ML VIAL. IV PRN; -ONDANSETRON PF 4 MG/2 ML VIAL. IV PRN; -PROCHLORPERAZINE 10 MG/2 ML VIAL. IV PRN; -fentaNYL PF VIAL 100 MCG/2 ML VIAL IV PRN
--- NOTE | 2018-11-25 15:20 | KCIC ---
EXAM: CT angiogram of the head without and with intravenous contrast. HISTORY: Headaches. Numbness and paresthesia. TECHNIQUE: Computed tomographic images of the head were obtained prior to and following the administration of 100 cc Omnipaque 300 intravenous contrast. 3-dimensional maximum intensity projections were obtained. *One or more of the following individualized dose reduction techniques were utilized for this examination: 1. Automated exposure control. 2. Adjustment of the mA and/or kV according to patient size. 3. Use of iterative reconstruction technique. COMPARISON: 11/29/2013. FINDINGS: The noncontrast images demonstrate no hemorrhage. There is no mass effect or midline shift. There is no hydrocephalus. The dunn-white matter differentiation pattern is intact. No suspicious calvarial lesion is seen. The orbits, paranasal sinuses mastoid air cells are unremarkable. The post contrast images demonstrate no evidence of hemodynamically significant stenosis involving the intracranial arteries. The anterior commuting artery is patent. The posterior communicating arteries are hypoplastic or absent. The vertebral arteries are codominant. There is a 2.5 mm focus of enhancement along the inferior lateral aspect of the distal cavernous right internal carotid artery. Echogenic images favor that this is due to adjacent venous contamination. No convincing aneurysm is seen. There is no vascular malformation. IMPRESSION: 1. No acute intracranial finding. 2. No evidence of hemodynamically significant stenosis involving the intracranial arteries. 3. Small focus of contrast along the inferior lateral aspect of the distal cavernous right ICA, the appearance of which favors venous contamination. No convincing aneurysm is seen. PQRS Compliance Statement - Stenosis calculations for CT, MR and conventional angiography are based upon measurement of the distal ICA diameter in accordance with the NASCET methodology. Stenosis calculations for carotid ultrasound studies are derived from validated velocity criteria which are known to correlate with the NASCET methodology. Electronically signed by: Sun Du MD (11/25/2018 3:17 PM) [place] [id number]
== END | disposition home or self-care (01) ==
LOC: KCIC 14:13
PROVIDERS: ATTEND Registered Nurse General Practice
DX: R20.2 Paresthesia of skin (principal); R51 Headache; I10 Essential (primary) hypertension; Z88.2 Allergy status to sulfonamides
CPT/HCPCS: 70496; Q9967

== ENCOUNTER → 2019-05-02 | Outpatient (CLI) | payer BC ==
[~2019-05-02] MED LIST changes: -IOHEXOL 300 MG/ML 100ML VIAL. IV ONE
--- NOTE | 2019-05-02 12:58 | KCIC ---
CT ABDOMEN PELVIS WO CONTRAST Indication: Left flank pain. Microscopic hematuria. History of stones. Exposure: One or more of the following individualized dose reduction techniques were utilized for this examination: 1. Automated exposure control 2. Adjustment of the mA and/or kV according to patient size 3. Use of iterative reconstruction technique. Comparison: None are available. Technique: No intravenous contrast given. No oral contrast per request. Findings: Evaluation of solid viscera, bowel and vasculature is compromised by the noncontrast technique. Lung bases are clear. Liver and spleen appear grossly unremarkable. No evidence of peripancreatic fluid or inflammatory change. Pancreas demonstrates overall homogeneous density. No evidence of adrenal mass. No evidence of right renal calculus or hydronephrosis. Couple of calculi measuring up to 2 mm at the lower pole the left kidney are nonobstructive. No left hydronephrosis or ureteric calculus. No calcified gallstone. The aorta is nonaneurysmal. No significant lymph node enlargement. Very small hiatal hernia. No significant small bowel distention. The appendix appears normal. No evidence of acute colitis. Scattered small colonic diverticula. No evidence of pneumoperitoneum or significant ascites. Urinary bladder is not adequately distended for evaluation. Mild degenerative changes of the spine. No destructive bone lesion. IMPRESSION: 1. There are 2 very small nonobstructive left renal calculi. No ureteric calculus or evidence of obstructive uropathy. 2. No acute findings are identified. Electronically signed by: Brett Seay MD (05/02/2019 12:55 PM) [facility]
== END | disposition home or self-care (01) ==
LOC: KCIC CT 11:45
PROVIDERS: ATTEND Family Medicine
DX: N20.0 Calculus of kidney (principal); K44.9 Diaphragmatic hernia without obstruction or gangrene; K57.30 Diverticulosis of large intestine without perforation or abscess without bleeding; I10 Essential (primary) hypertension; E11.9 Type 2 diabetes mellitus without complications; Z88.2 Allergy status to sulfonamides
CPT/HCPCS: 74176

== ENCOUNTER → 2019-05-12 | Outpatient (CLI) | payer BC ==
--- NOTE | 2019-05-12 10:13 | KCIC ---
Examination: MRI left shoulder without contrast HISTORY: History of left shoulder pain, decreased range of motion COMPARISON: None available TECHNIQUE: Multiplanar, multisequence MR imaging of the left shoulder performed without contrast. FINDINGS: The long head of the biceps tendon within the bicipital groove. The attachment of the long head the biceps tendon to the superior labral anchor grossly appears intact. The attachment of subscapularis tendon grossly appears intact. There is mild increased T2 signal identified at the attachment of the supraspinatus tendon to the greater tuberosity likely mild tendinosis. There is mild bursal sided fraying of the supraspinatus tendon. The acromion is type II. The attachment of the infraspinatus tendon, teres minor tendon grossly appears intact. There is minimal amount of fluid identified in the subacromial bursa. Moderate degenerative changes acromioclavicular joint. The visualized labrum grossly appears unremarkable. The muscle bulk grossly appears unremarkable. There is mild obscuration of fat in the rotator interval. IMPRESSION: 1. Mild tendinosis supraspinatus tendon. There is bursal sided fraying of the supraspinatus tendon with minimal amount of fluid identified in the subacromial bursa probably bursitis. 2. Mild obscuration of fat in the rotator interval. Correlate for adhesive capsulitis. Electronically signed by: Rosalio Harris MD (05/12/2019 10:10 AM) [id number]
== END | disposition home or self-care (01) ==
LOC: KCIC MRI 08:43
DX: M19.011 Primary osteoarthritis, right shoulder (principal); S49.92XA Unspecified injury of left shoulder and upper arm, initial encounter; M75.82 Other shoulder lesions, left shoulder; M25.812 Other specified joint disorders, left shoulder; Z90.710 Acquired absence of both cervix and uterus; X58.XXXA Exposure to other specified factors, initial encounter; Y93.89 Activity, other specified; Y92.89 Other specified places as the place of occurrence of the external cause; Y99.8 Other external cause status
CPT/HCPCS: 73221

== ENCOUNTER → 2019-09-29 | Outpatient (CLI) | payer BC ==
[~2019-09-29] MED LIST changes: +POTA20TA4 PO; -POTA20TA82 PO
--- NOTE | 2019-09-29 16:31 | RAD ---
DATE: 09/29/2019 EXAM: DIGITAL DIAGNOSTIC BILATERAL, BREAST LEFT HISTORY: Palpable abnormality involving the left breast in the past one month COMPARISON: 08/16/2015, 08/17/2016, 08/27/2017 screen mammographic exams and 06/08/2018 left unilateral diagnostic mammographic exam This study was interpreted with the benefit of Computerized Aided Detection (CAD). Breast Density: HETERO The breast parenchyma is heterogenously dense, which could reduce sensitivity of mammography. Breast parenchyma level C. FINDINGS: Benign-appearing calcifications are present. No mass or distortion identified compared to prior exams. Limited ultrasound examination of the left breast demonstrates a hypoechoic vascular structure measuring 0.7 cm x 0.6 cm x 0.4 cm tall involving the deep margin of the skin with appearance of a sinus tract to the skin surface. This is at the 10:00 region 7 cm from nipple corresponding to site where the patient reports a painful palpable lump. IMPRESSION: Left breast inflamed sebaceous cyst suspected. BI-RADS CATEGORY: 3 PROBABLY BENIGN FINDING(S)-SHORT INTERVAL FOLLOW-UP SUGGESTED RECOMMENDED FOLLOW-UP: 6M 6 MONTH FOLLOW-UP. Six-month follow-up ultrasound exam to assess stability is recommended of the left breast finding which most likely represents an inflamed sebaceous cyst. . PQRS compliance statement: Patient information was entered into a reminder system with a target due date for the next mammogram. Mammography is a sensitive method for finding small breast cancers, but it does not detect them all and is not a substitute for careful clinical examination. A negative mammogram does not negate a clinically suspicious finding and should not result in delay in biopsying a clinically suspicious abnormality. "Our facility is accredited by the [employer] Mammography Program."
== END | disposition home or self-care (01) ==
LOC: MAMMO 14:43
PROVIDERS: ATTEND Obstetrics & Gynecology
DX: R92.1 Mammographic calcification found on diagnostic imaging of breast (principal)
CPT/HCPCS: 76641; 77066

== ENCOUNTER → 2019-11-04 | Outpatient (CLI) | payer BC ==
--- NOTE | 2019-11-04 13:56 | RAD ---
Examination: Limited right breast ultrasound. INDICATION: 49-year-old woman with a palpable lump in the right breast on self exam. COMPARISON: Bilateral mammogram of September 29, 2019. TECHNIQUE: Grayscale and color Doppler imaging of the right breast in the area of palpable concern was performed. FINDINGS: In the right periareolar breast at the 12:00 position 1 cm from the nipple, localized skin thickening with mild internal vascularity and heterogeneous internal echoes measuring 7 x 4 x 7 mm is present. This correlates with the area of palpable concern as reported by the patient. The underlying breast parenchyma is unremarkable. IMPRESSION: Sonographically benign skin lesion in the periareolar right breast. This could represent a sebaceous cyst. Recommend clinical management which may include biopsy of any clinically suspicious features if present. In the absence of any clinically suspicious features, return to routine mammographic screening is recommended. BI-RADS Category 2 Benign findings BI-RADS 2 -- benign findings
== END | disposition home or self-care (01) ==
LOC: US 12:11
PROVIDERS: ATTEND Obstetrics & Gynecology
DX: N64.89 Other specified disorders of breast (principal); N64.4 Mastodynia; N63.10 Unspecified lump in the right breast, unspecified quadrant
CPT/HCPCS: 76641

== ENCOUNTER → 2020-10-25 | Outpatient (CLI) | payer BC ==
[~2020-10-25] MED LIST changes: +AMLO-186 PO; -AMLO5TAB10 PO
--- NOTE | 2020-10-25 12:45 | RAD ---
EXAMINATION: MG DIAGNOSTIC BILAT, US BREAST LT CLINICAL HISTORY: Left breast pain and palpable abnormality TECHNIQUE: Digital craniocaudal and mediolateral oblique views of the bilateral breasts with addition al true lateral and spot compression views of the left breast. Targeted left breast ultrasound also p erformed. COMPARISON: Ultrasound left breast 09/29/2019; mammograms 09/29/2019, 08/27/2017, 08/17/2016 BREAST COMPOSITION: The breasts are heterogeneously dense, which may obscure small masses. FINDINGS: BILATERAL DIAGNOSTIC MAMMOGRAM: No evidence of suspicious mass, calcifications, or areas of architectural distortion. No discrete abn ormality definitively visualized in the region of palpable abnormality denoted by BB marker. LEFT BREAST ULTRASOUND: At 3:00 position 4 cm from the nipple, there is a 8 x 6 x 5 mm oval circumscribed hypoechoic mass dem onstrating mild posterior enhancement and no internal vascularity, possibly a complicated cyst. This corresponds to the site of palpable abnormality. No suspicious findings in the left axilla. IMPRESSION: Mammographically occult benign-appearing 8 mm mass left upper outer quadrant corresponding to site of palpable abnormality. No evidence of malignancy bilaterally. BI-RADS ASSESSMENT: Category 2: Benign RECOMMENDATION: Recommend clinical management of left breast palpable abnormality and return for routine bilateral sc reening mammogram in one year. PQRS compliance statement - Patient information was entered into a reminder system with a target due date for the next mammogram. "Our facility is accredited by the [employer]ammography [employer]." Electronically signed by: Harjit Garcia DO (10/25/2020 12:43 PM) [id number]
== END ==
LOC: MAMMO 11:05
PROVIDERS: ATTEND Obstetrics & Gynecology
DX: R92.8 Other abnormal and inconclusive findings on diagnostic imaging of breast (principal); N63.21 Unspecified lump in the left breast, upper outer quadrant
CPT/HCPCS: 76641; 77066

== ENCOUNTER → 2021-03-29 | Outpatient (CLI) | payer BC ==
[~2021-03-29] MED LIST changes: +IOHEXOL 240 MG/ML 50ML VIAL. PO ONE
--- NOTE | 2021-03-29 10:19 | KCIC ---
EXAMINATION: CT abdomen and pelvis without IV contrast. INDICATION:51 years, Female, left upper lower quadrant abdominal pain. TECHNIQUE: Axial CT images of the abdomen and pelvis were obtained. Coronal and sagittal reformatted performed. COMPARISON: 05/02/2019. Exposure: One or more of the following individualized dose reduction techniques were utilized for thi s examination: 1. Automated exposure control 2. Adjustment of the mA and/or kV according to patient size 3. Use of iterative reconstruction technique. FINDINGS: LOWER CHEST: Unremarkable ABDOMEN/PELVIS: Within the limitation of noncontrast exam, Liver, gallbladder, spleen, pancreas and adrenals are unremarkable. At least 2 punctate nonobstructin g calculi in the left kidney, the largest measures 2 mm. No right hydronephrosis or nephrolithiasis. No bowel obstruction or wall thickening. Few colonic diverticulosis without diverticulitis. Normal ap pendix. Normal caliber abdominal aorta. No ascites. No lymphadenopathy in the abdomen or pelvis by si ze criteria. Unremarkable bladder. Hysterectomy. Ill-defined 2.6 cm left adnexal cyst. MUSCULOSKELETAL: No acute osseous process IMPRESSION: Within the limitation of noncontrast exam, 1. No acute abnormality in the abdomen or pelvis. 2. Punctate nonobstructing left nephrolithiasis. 3. Ill-defined 2.6 cm left adnexal cyst, which could be source of pain. Recommend further evaluation with pelvic ultrasound. Electronically signed by: Traci Castillo MD (03/29/2021 10:17 AM) [id number]
== END ==
LOC: KCIC CT 08:42
PROVIDERS: ATTEND Nurse Practitioner Family
DX: N20.0 Calculus of kidney (principal); K57.30 Diverticulosis of large intestine without perforation or abscess without bleeding; N83.8 Other noninflammatory disorders of ovary, fallopian tube and broad ligament; Z90.710 Acquired absence of both cervix and uterus
CPT/HCPCS: 74176; Q9966

== ENCOUNTER → 2021-07-03 | Outpatient (CLI) | payer BC ==
[~2021-07-03] MED LIST changes: -IOHEXOL 240 MG/ML 50ML VIAL. PO ONE
--- NOTE | 2021-07-04 08:19 | CARD ---
MR#: [id number] Date of Study: 07/03/2021 Ordering Physician: LANIE CROCKETT, Referring Physician: LANIE CROCKETT, Tech: Seema Villanueva Claudiasaira, [facility] APPROVED REPORT EXAM: Two-dimensional and M-mode echocardiogram with Doppler and color Doppler. Other Information Quality : GoodHR: 82bpm Technically limited study due to body habitus. INDICATION Chest Pain RISK FACTORS Hypertension Diabetes 2D DIMENSIONS RVDd3.0 (2.9-3.5cm)Left Atrium(2D)2.9 (1.6-4.0cm) IVSd1.1 (0.7-1.1cm)Aortic Root(2D)3.0 (2.0-3.7cm) LVDd4.4 (3.9-5.9cm)LVOT Diameter2.0 (1.8-2.4cm) PWd1.0 (0.7-1.1cm)LVDs2.9 (2.5-4.0cm) FS (%) 34.0 %SV54.5 ml LVEF(%)63.1 (>50%) Aortic Valve AoV Peak Mohinder.116.3cm/sAoV VTI21.2cm AO Peak GR.5.4mmHgLVOT Peak Mohinder.92.2cm/s LVOT VTI 16.34cmAO Mean GR.3mmHg AROLDO (VMAX)1.24fl6UKR (VTI)2.42cm2 Mitral Valve MV E Sivhnsjy52.7cm/sMV DECEL FTMP432li MV A Pwtzdonk71.9cm/sMV E Mean Gr.1mmHg MV MRV72eqO/A Ratio1.1 MVA (PHT)3.21cm2 TDI E/Lateral E'7.7E/Medial E'9.2 Pulmonary Valve PV Peak Eoxkvhbe40.1cm/sPV Peak Grad.3mmHg Tricuspid Valve TR P. Rlwrogba459ya/sRAP NGGWMXXV1isHa TR Peak Gr.81rwCfVQFF60esQk Pulmonary Vein S1 Aeelsaau74.2cm/sD2 Pfrqgpqj51.7cm/s PVa aigwmuwt271sgnp LEFT VENTRICLE The left ventricle is normal size. There is mild concentric left ventricular hypertrophy. The left ve ntricular systolic function is normal and the ejection fraction is within normal range. The Ejection Fraction is 50-55%. There is normal LV segmental wall motion. Transmitral Doppler flow pattern is Gra de II-pseudonormal filling dynamics. RIGHT VENTRICLE The right ventricle is normal size. There is normal right ventricular wall thickness. The right ventr icular systolic function is normal. ATRIA The left atrium size is normal. The right atrium size is normal. The interatrial septum is intact wit h no evidence for an atrial septal defect or patent foramen ovale as noted on 2-D or Doppler imaging. AORTIC VALVE The aortic valve is normal in structure and function. Doppler and Color Flow revealed no significant aortic regurgitation. There is no significant aortic valvular stenosis. Calculated aortic valve area is 2.19 cm2 with maximum pressure gradient of 7 mmHg and mean pressure gradient of 4 mmHg. MITRAL VALVE The mitral valve is normal in structure and function. There is no evidence of mitral valve prolapse. There is no mitral valve stenosis. Doppler and Color-flow revealed trace mitral regurgitation. TRICUSPID VALVE The tricuspid valve is normal in structure and function. Doppler and Color Flow revealed trace tricus pid regurgitation with an estimated PAP of 30 mmHg. There is no tricuspid valve stenosis. PULMONIC VALVE The pulmonic valve is not well visualized. Doppler and Color Flow revealed no pulmonic valvular regur gitation. There is no pulmonic valvular stenosis. GREAT VESSELS The aortic root is normal in size. The IVC was not visualized. PERICARDIAL EFFUSION There is no evidence of significant pericardial effusion. Critical Notification Critical Value: No <Conclusion> The left ventricular systolic function is normal and the ejection fraction is within normal range. Th e Ejection Fraction is 50-55%. There is normal LV segmental wall motion. Signed by : Lanie Crockett, Electronically Approved : 07/04/2021 08:18:52
== END ==
LOC: ECHO 13:48
PROVIDERS: ATTEND Internal Medicine Cardiovascular Disease
DX: R07.9 Chest pain, unspecified (principal)
CPT/HCPCS: 93306

== ENCOUNTER → 2022-01-29 | Outpatient (CLI) | payer BC ==
--- NOTE | 2022-01-29 15:29 | RAD ---
INDICATION: 51 years of age asymptomatic female patient presents for screening mammography. No person al or family history of breast cancer. TECHNIQUE: Full field craniocaudal and mediolateral oblique images of both breasts were obtained usi ng digital technique with tomosynthesis and also analyzed with computer-aided detection software. COMPARISON: Prior mammographic imaging dating back to 08/17/2016. BREAST COMPOSITION: Category D: The breasts are extremely dense. This may lower the sensitivity of m ammography. FINDINGS: The parenchymal pattern appears stable. Benign calcifications are present. No suspicious masses, microcalcifications or architectural distortion is present to suggest malignanc y in either breast. The visualized axillae are unremarkable. IMPRESSION: No mammographic evidence of malignancy. RECOMMENDATION: Annual screening mammography is recommended, unless clinically indicated sooner based on symptoms or change in physical exam. BIRADS 2: BENIGN This study was interpreted with the benefit of Computerized Aided Detection (CAD). ?Your patient's mammogram demonstrates that she has dense breast tissue (breast density category C or D), which could hide abnormalities, and if she has other risk factors for breast cancer that have be en identified, she might benefit from supplemental screening tests that may be suggested by you as he r ordering physician. Dense breast tissue, in and of itself, is a relatively common condition. Theref ore, this information is not provided to cause undue concern, but rather to raise your awareness and to promote discussion with your patient regarding the presence of other risk factors, in addition to dense breast tissue. Your patient's mammography results will be sent to her. Patient information is entered into the reminder system with a target due date for the next screening mammogram. Mammography is the most sensitive method for finding small breast cancers, but it does not detect the m all and is not a substitute for careful clinical examination. A negative mammogram does not negate a clinically suspicious finding and should not result in delay in biopsying a clinically suspicious a bnormality. "Our facility is accredited by the [employer] Mammography [employer]." Electronically signed by: Rodríguez Tolentino DO (01/29/2022 3:27 PM) [id number]
== END ==
LOC: MAMMO 12:34
PROVIDERS: ATTEND Obstetrics & Gynecology
DX: Z12.31 Encounter for screening mammogram for malignant neoplasm of breast (principal)
CPT/HCPCS: 77063; 77067